=== PATIENT | female | born 1950 | race Caucasian/White ===

== ENCOUNTER → 2017-03-04 | Outpatient (CLI) | payer MEDICARE, BC ==
[~2017-03-04] VITALS: Ht 157.5 cm; Wt 81.6 kg
[~2017-03-04] MED LIST: ASPI81TA85 PO; BREO1INH3 INH; CALC600T21 PO; CENT1TAB PO; FENO145T PO; FISH1000 PO; LIDOCAINE 2% INJ 100 MG/5 ML SDV (FOR ANES.) As Ordered ONE; NEXI20CA PO; NS 1,000 ML IV ONE; PRIS50TA PO; PROPOFOL 200 MG/20 ML VIAL As Ordered ONE; ZYRT10CA PO
--- NOTE | 2017-03-04 14:54 | ROOR ---
Patient Name: Denice Cordova Procedure Date: 03/04/2017 2:40 PM Date of : 1950 Age: 66 Room: [facility] Gender: Female Note Status: Finalized Procedure: Upper GI endoscopy Indications: Surveillance procedure, Heartburn Providers: Maged VELA MD Referring MD: PEGGY [facility] Damaris [facility] MD Damaris Requesting Provider: Medicines: Monitored Anesthesia Care Complications: No immediate complications. Procedure: Pre-Anesthesia Assessment: - The heart rate, respiratory rate, oxygen saturations, blood pressure, adequacy of pulmonary ventilation, and response to care were monitored throughout the procedure. The Endoscope was introduced through the mouth, and advanced to the second part of duodenum. The upper GI endoscopy was accomplished without difficulty. The patient tolerated the procedure well. Findings: The Z-line was regular and was found 36 cm from the incisors. The esophagus was normal. The stomach was normal. The examined duodenum was normal. Impression: - Normal esophagus. Z-line regular, 36 cm from the incisors - Normal stomach. - Normal examined duodenum. - No specimens collected. Recommendation: - Continue present medications. - Observe patient's clinical course. Maged Vela MD Maged VELA MD 03/04/2017 2:54:26 PM This report has been signed electronically. Number of Addenda: 0 Note Initiated On: 03/04/2017 2:40 PM Estimated Blood Loss: Estimated blood loss: none.
[2017-03-04 15:28] VITALS: BP 139/68
== END | disposition home or self-care (01) ==
LOC: M OPP 12:34
PROVIDERS: ATTEND Internal Medicine Gastroenterology
DX: K21.9 Gastro-esophageal reflux disease without esophagitis (principal); E78.5 Hyperlipidemia, unspecified; F33.9 Major depressive disorder, recurrent, unspecified; J45.909 Unspecified asthma, uncomplicated; Z79.899 Other long term (current) drug therapy; Z79.51 Long term (current) use of inhaled steroids; Z79.82 Long term (current) use of aspirin; Z88.8 Allergy status to other drugs, medicaments and biological substances

== ENCOUNTER → 2024-02-27 | Outpatient (CLI) | payer MEDICARE ==
[~2024-02-27] MED LIST changes: -ASPI81TA85 PO; +ASPI81TA86 PO; -CALC600T21 PO; +CALC600T60 PO; -FENO145T PO; +FENO145T7 PO; -LIDOCAINE 2% INJ 100 MG/5 ML SDV (FOR ANES.) As Ordered ONE; -NS 1,000 ML IV ONE; -PROPOFOL 200 MG/20 ML VIAL As Ordered ONE
== END ==
LOC: M SOG 08:23
PROVIDERS: ATTEND Orthopaedic Surgery
DX: M54.50 Low back pain, unspecified (principal)